=== PATIENT | female | born 1980 | race Caucasian/White ===

== ENCOUNTER 2024-01-19 17:16 | Inpatient (IN) ==
--- NOTE | 2024-01-19 18:25 | Emergency Department Note ---
Impression & Plan Panic attacks, Anxiety ED Provider Note NAME: YOJANA SELBY AGE: 43 SEX: F : 1980 ARRIVES VIA: Walk-In INFORMANT: Patient, ED PROVIDER(S): Miguel Angel Zepeda MD CHIEF COMPLAINT: Anxiety MEDICAL DECISION MAKING: Patient was seen due to concern for increasing anxiety. Blood work was obtained. Patient would like something for headache was ordered Tylenol. Patient was also given Vistaril as she had complained of anxiety. Blood work with a white count of 11 but denies infectious symptoms normal H&H and platelet count. Kidney function unremarkable mild hypokalemia 3.3. BSG at 142 but nonfasting not DKA. Urinalysis negative for blood or infection. Salicylate Tylenol alcohol negative and UDS negative. Patient was deemed medically cleared and seen and evaluated by psych medical case manager and referrals were made. The patient was accepted for inpatient treatment at [facility]. Discussion w/ other healthcare providers: ED case management Prior /Outside records reviewed: I reviewed a neurology visit from Dr. Ugarte from January 11, 2024. Known history of significant anxiety recently off Lexapro and lorazepam experiencing intermittent headaches with probable mixed type cervicogenic tension type headache as well as some migraine. Had complained of dizziness brain fog and intermittent diffuse paresthesias at that time. Do not think that EEG or EMG will be necessary at this time. Patient did have a brain MRI completed December 26, 2023 which showed no evidence of demyelinating disease hydrocephalus or Chiari malformation. Patient reportedly had a prior brain MRI completed December 22, 2023 as well. Differential diagnosis: Mood disorder, infection, hypoglycemia, electrolyte abnormalities, dehydration, medication side effect among others were considered. Diagnostics, as interpreted by me: ECG: None Medical decision rules: None Imaging studies: None HPI: Patient presents due to concern for worsening anxiety. The patient states that about 2 months ago the patient herself off Lexapro and Ativan still cannot focus. Patient reports not being able to sleep for about a month in duration. Recent in the last several days the patient has been able to sleep from about 12-5. Patient states that she wakes up and feels immediately anxious. Patient feels as though she is disassociated from her body. Patient has been seen by neurology and has had several MRIs. Patient reports that around the time that all this began her son graduated life with his sporting events and now that he no longer plays any sports there has been avoided there and that her daughter also moved out. She also states that her Pap . Patient is had decreased appetite. Patient's sleep is been poor. She smokes nicotine. The patient has tried hemp oil to help with sleep and appetite. Patient does use alcohol socially. Patient denies any SI HI or AVH. PAST MEDICAL HISTORY: See Below PAST SURGICAL HISTORY: See Below SOCIAL HISTORY: See Below HOME MEDICATIONS: See Below ALLERGIES: See Below VITALS: See Below PHYSICAL EXAMINATION: GENERAL: NAD, non-toxic. Anxious in appearance. Tearful. EYE EXAM: Normal conjunctiva. PERRL, no anisocoria and EOM's grossly intact w/o pain. OROPHARYNX: Moist mucus membranes, grossly normal dentition. NECK: Trachea midline, no stridor. Supple, no nuchal rigidity, no adenopathy, non-tender. No signs of meningismus. FROM of the neck with good chin to chest and neck extension. LUNGS: Clear to auscultation. Normal chest wall mechanics. HEART: NSR, no MRG. ABDOMEN: Abdomen soft, non-tender, no masses, no rebound or guarding. BACK: No CVA TTP. SKIN: No rashes and no bruising. UPPER EXTREMITIES: Upper extremities are grossly normal. LOWER EXTREMITIES: Grossly normal, no edema. NEURO EXAM: A&O x3, cranial nerves II-XII grossly intact, normal speech, moves all 4 extremities. Psych: Negative SI HI or AVH. Anxious and tearful. Past Med/Surg History Medical History Panic attacks Social History Smoking Status: Current every day smoker Preferred Language: Nepali Communication Ability: Effective Rolloff Truck Driver Required: No Beliefs That Will Affect Care: None Feels Safe at Home: Yes Gender Identity: Female Assistive Devices: None Allergies Allergies Allergy/AdvReac Type Severity Reaction Status Date / Time codeine AdvReac Intermediate HYPERACTIVE Verified 01/11/24 10:34 SURGICAL TAPES Allergy Intermediate RED RASH Uncoded 01/11/24 10:34 TO AREAS Home Meds Home Medications Medication Instructions Recorded Confirmed ibuprofen 200 mg tablet 800 mg PO DIRECTED PRN Pain 12/26/23 12/31/23 lorazepam 0.5 mg tablet 0.25 - 0.5 mg PO BID PRN Anxiety 12/26/23 12/31/23 methylphenidate HCl 27 mg 27 mg PO QAM 12/26/23 12/31/23 tablet,extended release 24 hr amoxicillin 875 mg-potassium 1 tab PO BID 12/31/23 12/31/23 clavulanate 125 mg tablet magnesium oxide 500 mg PO DAILY 12/31/23 12/31/23 multivit with minerals-folic acid tab PO 01/11/24 01/11/24 200 mcg-biotin 300 mcg chew tablet (Women's Multivitamin with Biotin) vit C 500 mg-rutin 10 mg-hesperidn tab PO 01/11/24 01/11/24 cmp 10 mg-bioflav,cit 200 mg tablet Previous Rx's Medication Instructions Recorded gabapentin 100 mg capsule 200 mg (2 x 100 mg) PO HS #60 caps 01/11/24 Results & Data (ED) Vital Signs Vital Signs - 24 hr 01/19/24 17:23 01/19/24 19:59 01/19/24 22:01 Temperature 36.8 C Temperature Source Temporal Artery Scan Pulse Rate 112 H Pulse Rate [Finger] 88 88 Pulse Rhythm Regular Pulse Strength Normal Pulse Strength [Finger] Normal Normal Respiratory Rate 20 20 96 H Respiratory Effort / Characteristics Non-Labored Spontaneous Non-Labored Spontaneous Non-Labored Spontaneous Respiratory Depth Normal Normal Normal Respiratory Pattern Regular Regular Blood Pressure 133/86 Blood Pressure [Left Arm] 125/82 116/76 Blood Pressure Mean 101 Blood Pressure Mean [Left Arm] 96 89 Pulse Oximetry 97 99 96 Oxygen Delivery Method Room Air Room Air Room Air Sepsis Recent Fever Within 48 Hours No Sepsis New/Unexplained Change in Mental Status No Sepsis Action Taken by Nursing No Action Required Home Medications Current Medication List: was personally reviewed by me Laboratory Data Attestation: I reviewed the patient's lab results. 01/19/24 18:30 01/19/24 18:30 Lab Results 01/19/24 01/19/24 Range/Units 18:30 19:55 WBC 11.14 H (4.8-10.8) K/ul RBC 4.63 (4.20-5.40) M/uL Hgb 15.0 (12.0-16.0) g/dl Hct 43.0 (37.0-47.0) % MCV 92.9 (80.0-100.0) fL MCH 32.4 (25.0-34.0) pg MCHC 34.9 (32.0-36.0) g/dL RDW Std Deviation 43.7 (36.4-46.3) fL RDW Coeff of Georgina 12.9 (11.5-14.5) % Plt Count 327 (130-400) K/uL MPV 10.0 (9.4-12.4) fL Immature Gran % (Auto) 0.3 % Neut % (Auto) 63.6 % Lymph % (Auto) 28.4 % [place] % (Auto) 6.2 % Eos % (Auto) 1.1 % Baso % (Auto) 0.4 % Neut # (Auto) 7.09 H (1.40-6.50) K/uL Lymph # (Auto) 3.16 (1.20-3.40) K/uL [place] # (Auto) 0.69 H (0.11-0.59) K/uL Eos # (Auto) 0.12 (0.00-0.50) K/uL Baso # (Auto) 0.05 (0.00-0.20) K/uL Immature Gran # (Auto) 0.03 (0.01-0.20) K/uL Sodium 138 (136-145) mmol/L Potassium 3.3 L (3.5-5.1) mmol/L Chloride 104 (98-107) mmol/L Carbon Dioxide 26 (21-32) mmol/L Anion Gap 8 (3-11) BUN 5 L (6-23) mg/dl Creatinine 0.67 (0.6-1.2) mg/dl Est Cr Clr Drug Dosing 107.0 ml/min Est GFR ( Amer) 123.9 ml/min Est GFR (Non-Af Amer) 106.9 ml/min BUN/Creatinine Ratio 7.5 L (10-20) Glucose 142 H (70-99(Fasting)) mg/dl Calcium 9.5 (8.6-10.3) mg/dl Total Bilirubin 0.3 (0.2-1.0) mg/dl AST 18 (13-39) U/L ALT 29 (7-52) U/L Alkaline Phosphatase 53 (34-104) U/L Total Protein 7.3 (6.0-8.3) gm/dl Albumin 4.6 (3.4-5.0) gm/dl Globulin 2.7 (2.5-4.0) gm/dl Albumin/Globulin Ratio 1.7 (0.9-2) TSH 0.816 (0.300-4.500) uIu/ml Urine Color Yellow Urine Appearance Clear (Clear) Urine pH 6.5 (4.5-7.5) Ur Specific [place] 1.002 (1.000-1.030) Urine Protein Negative (Negative) Urine Glucose (UA) Negative (Negative) Urine Ketones Negative (Negative) Urine Blood Negative (Negative) Urine Nitrite Negative (Negative) Urine Bilirubin Negative (Negative) Urine Urobilinogen Negative (Negative) Ur Leukocyte Esterase Negative (Negative) Salicylates < 3.0 L (3.0-30) mg/dl Urine Opiates Screen Neg (Neg) Ur Methadone, Qual Neg (Neg) Acetaminophen < 3 L (10-30) ug/ml Urine Barbiturates Neg (Neg) Ur Phencyclidine (PCP) Neg (Neg) U Amphetamin/Meth Scrn Neg (Neg) MDMA (Ecstasy) Screen Neg (Neg) U Benzodiazepines Scrn Neg (Neg) Ur Cocaine Metabolite Neg (Neg) U Marijuana (THC) Screen Neg (Neg) Ethyl Alcohol mg/dL < 10.0 (<10.0) mg/dl SARS-CoV-2, RNA, NAAT NEGATIVE (NEGATIVE) Administered Medications Discontinued Medications Acetaminophen (Acetaminophen 500 Mg Tab) 1,000 mg PO NOW STA Stop: 01/19/24 19:25 Last Admin: 01/19/24 19:47 Dose: 1,000 mg Documented By: ZACH Hydroxyzine HCl (Hydroxyzine Hcl 25 Mg Tab) 25 mg PO NOW STA Stop: 01/19/24 19:25 Last Admin: 01/19/24 19:49 Dose: 25 mg Documented By: ZACH Discharge Plan Visit Data Chief Complaint: Mental Health Evaluation Stated Complaint: MENTAL HEALTH EVAL, WENT OFF MEDS TOO FAST ED Provider: Miguel Angel Zepeda Discharge Problem: Panic attacks, Anxiety Patient Disposition: Admitted As Inpatient Discharge Instructions Interventions: ED Discharge Assessment Last Done: 01/19/24 22:29
[2024-01-19 18:57] LABS: Basophils # (auto) 0.05 K/uL (0.00-0.20); Basophils % (auto) 0.4 %; Eosinophils # (auto) 0.12 K/uL (0.00-0.50); Eosinophils % (auto) 1.1 %; Immature Granulocytes # (auto) 0.03 K/uL (0.01-0.20); Immature Granulocytes % (auto) 0.3 %; Lymphocytes # (auto) 3.16 K/uL (1.20-3.40); Lymphocytes % (auto) 28.4 %; Mean Corpuscular Hemoglobin 32.4 pg (25.0-34.0); Mean Corpuscular Hgb Conc 34.9 g/dL (32.0-36.0); Mean Corpuscular Volume 92.9 fL (80.0-100.0); Monocytes # (auto) 0.69 K/uL (0.11-0.59); Monocytes % (auto) 6.2 %; Neutrophils # (auto) 7.09 K/uL (1.40-6.50); Neutrophils % (auto) 63.6 %; Platelet Count 327 K/uL (130-400); RDW Coefficient of Variation 12.9 % (11.5-14.5); RDW Standard Deviation 43.7 fL (36.4-46.3); Red Blood Count 4.63 M/uL (4.20-5.40); White Blood Count 11.14 K/ul (4.8-10.8)
[2024-01-19 19:18] LABS: Albumin Globulin Ratio 1.7 (0.9-2); Albumin Level 4.6 gm/dl (3.4-5.0); BUN Creatinine Ratio 7.5 (10-20); Bilirubin,Total 0.3 mg/dl (0.2-1.0); Calcium 9.5 mg/dl (8.6-10.3); Est GFR (African American) 123.9 ml/min; Est GFR (Non-African American) 106.9 ml/min; Globulin 2.7 gm/dl (2.5-4.0); Potassium 3.3 mmol/L (3.5-5.1); Total Protein 7.3 gm/dl (6.0-8.3)
[2024-01-19 19:21] LABS: Acetaminophen < 3 ug/ml (10-30); Salicylate < 3.0 mg/dl (3.0-30)
[2024-01-19 19:31] LABS: Thyroid Stimulating Hormone 0.816 uIu/ml (0.300-4.500)
[2024-01-19] MEDS: ACETAMINOPHEN 500 MG TAB PO STA (19:47)
[2024-01-19] MEDS: hydrOXYzine HCl 25 MG TAB PO STA (19:49)
[2024-01-19 20:40] LABS: Amphetamines+Metham, Urine Neg (Neg); Barbiturates, Urine Neg (Neg); Benzodiazepine, Urine Neg (Neg); Cocaine, Urine Neg (Neg); MDMA (Ecstacy), Urine Neg (Neg); Marijuana, Urine Neg (Neg); Methadone, Urine Neg (Neg); Opiate, Urine Neg (Neg); Phencyclidine, Urine Neg (Neg)
[2024-01-19 20:47] LABS: Appearance Urine Clear (Clear); Bilirubin Urine Negative (Negative); Blood Urine Negative (Negative); Color Urine Yellow; Glucose Urine UA Negative (Negative); Ketones Urine Negative (Negative); Leukocyte Esterase Urine Negative (Negative); Nitrite Urine Negative (Negative); Protein Urine Negative (Negative); Specific Gravity Urine 1.002 (1.000-1.030); Urobilinogen Urine Negative (Negative); pH Urine 6.5 (4.5-7.5)
[2024-01-19] MEDS ORDERED: ACETAMINOPHEN 325 MG TAB PO PRN (22:45)
[2024-01-19] MEDS ORDERED: SODIUM CHLORIDE 0.65% NA SOLN 45 ML (OCEAN) PRN (22:45)
[2024-01-19] MEDS ORDERED: hydrOXYzine HCl 25 MG TAB PO PRN (22:45)
[2024-01-19] MEDS ORDERED: BISMUTH SUBSALICYLATE LIQD 236 ML PO PRN (22:45)
[2024-01-19] MEDS ORDERED: ALUMINUM/MAGNESIUM SUSP 30 ML UDC PO PRN (22:45)
[2024-01-19] MEDS ORDERED: MAGNESIUM HYDROXIDE SUSP 30 ML UDC PO PRN (22:45)
[2024-01-20] MEDS: hydrOXYzine HCl 25 MG TAB PO PRN (03:54)
[2024-01-20] MEDS: NICOTINE 21 MG/24 HR TDSY TD SCH (09:13)
[2024-01-20] MEDS: Nursing to Pharmacy Communication SCH (13:06)
[2024-01-20] MEDS: METHYLPHENIDATE HCL 10 MG TABLET PO SCH (13:06)
[2024-01-20] MEDS: METHYLPHENIDATE HCL 10 MG TABLET PO ONE (14:22)
--- NOTE | 2024-01-20 15:02 | History & Physical ---
Date of Service January 20, 2024 Impression / Recommendations Impression Yojana is a 43 yo woman with a history of ADHD, anxiety, depression, recent migraines and nicotine use who was admitted for severe anxiety and depression with hopelessness, poor sleep, significant concentration difficulties and multiple somatic symptoms with inability to feel safe or function at home. Diagnostically consistent with unspecified depression and anxiety with differential including MDD and BETHANY with panic attacks vs serotonin withdrawal syndrome in addition to likely contribution from sleep deprivation and possible migraines. Underlying medical condition possible but TSH normal, recent brain MRI normal per recent outpatient neurology visit and no evidence for any other acute medical condition. Blood sugar was elevated in ED but she recalls not fasting when this was drawn, no history of diabetes. She is deemed in need of psychiatric hospitalization for diagnostic clarification, safety and stabilization, medication management and development of further coping skills. Discussed medication treatment options in detail. Discussed risks, benefits and alternatives. Patient would like to start and consented to sertraline and mirtazapine for MDD and BETHANY and Ritalin for ADHD (since prior to admission Concerta is not available on formulary). Reviewed side effects including but not limited to: GI, COPE, sexual side effects with sertraline; sedation/increased appetite with mirtazapine; increased anxiety/HR/cardiac issues with Ritalin. She prefers to hold off on gabapentin at this time. MNPR due to severe anxiety and inability to tolerate a roommate and goal of focusing on limiting interruptions to allow for sleep promotion. Overall I spent a total of 80 minutes for this admission including review of chart records, review of labwork, direct evaluation of the patient, counseling the patient, ordering medication, risk assessment, discussion with the psychiatric liason RN and documentation in the electronic health record. (1) Major depressive disorder, recurrent episode, severe with anxious distress: (2) Generalized anxiety disorder with panic attacks: (3) Depersonalization: (4) ADHD: (5) Mixed migraine and muscle contraction headache: Plan 01/20/2024: The patient was admitted to the [facility] ([facility]) on q15 min checks (behavioral with suicide precautions) for safety. The patient will participate in group, recreational, and milieu therapies and will be offered additional individual and family sessions as clinically appropriate. -Start sertraline 25mg qd -Start mirtazapine 7.5mg HS with additional 7.5mg HS prn available for insomnia -Given Concerta is non-formulary will start Ritalin 10mg qAM until she can bring home supply to have pharmacy verify Inventory Assets Strengths: supportive relationships, willing to get treatment Needs: safety and stabilization, medication adjustment, additional coping skills, increased outpatient services Suicide Risk Level Suicide Risk Level: High-Moderate (q15 min suicide checks) (severe anxiety and felt unsafe alone due to feeling so overwhelmed prior to admission but feels safe in the hospital, able to safety contract and agrees to let nursing/staff know should they develop plan, intent or feel unable to remain safe.) Suicide Risk Level Comments: Risk Factors Assessment Male: No : Yes Do You Have Access To A Gun?: No (guns are secured in the home (locked, no access to keys)) Health Problems: Yes (headaches) Mental Health Diagnoses: Yes Substance Use Disorders: No Previous Attempt: No Family History of Suicide: No Previous Psychiatric Hospitalization: Yes Hopelessness: Yes Protective Factors Assessment Faith Beliefs: Yes : Yes Responsible for Young Children: Yes Employed: Yes (Self employed) Stable Relationships: Yes Supportive Family: Yes Psychiatric History Identifying Data YOJANA SELBY is a 43-year-old F who currently lives in [place] with her and her sons, has a history of anxiety, depression, ADHD and migraine, and was admitted on 01/19/24 22:40 on a 201 voluntary commitment for sever anxiety and SI with inability to function. Chief Complaint "I've been living in this brain fog for two months now". History of Present Illness She is tearful describing "so much" is going on including poor focus, feeling like "I'm walking on cotton" and like "I'm over here and my body is over here". She was very anxious and started a few different psychiatric medications (lexapro and then ativan) and feels like since then she cannot function. She tried a few days without Concerta but her symptoms were even worse. She noted she is "so scared" and "I just live in a panic attack all day". She is overwhelmed by trying to figure out what is medication related side effects versus physical symptoms versus underlying psychiatric symptoms. She notes significant hopelessness and panic noting "will I ever get my brain back". She notes this has been going on for 2 months and she can't function at all. Significant sleep difficulty, only sleeping a few hours per night. She notes a lot of "sensory stuff". Had MRI in outpatient setting but results have been normal. She feels like she is having constant panic, and notes "I just want my cognitive abilities" back. Additional recent history per ED CM note on 01/19/2024: "Pt reports that she has stopped and started numerous psychiatric medications since October. Her PCP Dr Lakhani at [facility] in [place] prescribes her meds. Pt weened herself off her Lexapro and Ativan in the past couple of months. She started Zofran at [facility] (inpatient on 12/30), stopped in and started it again since leaving that facility. It is difficult to understand exactly what meds she is now taking. 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 Either her mom or have been staying with her so she is not alone. Pt denies SI with a plan but states she cannot trust herself to not do something impulsively. Her has removed all firearms and sharps from the house. Pt was admitted to [facility] on 12/30 but signed out in 72 hours. She did not like that facility and did not feel safe. Pt is very anxious and tearful. She is requesting inpatient treatment. Patients is with her in the ER and he agrees that she needs inpatient treatment. " She is currently prescribed psychiatric medications of Concerta (tried going off it for a few days but made brain fog and anxiety much worse), gabapentin for migraine (only took for a few days, isn't sure she wants to take this as worries it could add to cognitive symptoms) and lorazepam prn (though has not used in recent months). She also tried lots of supplements from a atomic physics professor but nothing helped. She stopped the lexapro about one month ago, after tapering from 20mg over about a month. Psychiatric ROS notable for no current nor history of symptoms of isabel, psychosis, PTSD, nor OCD. Past Psychiatric History Current Psychiatric Diagnosis: anxiety, MDD, ADHD Outpatient Services: last week started therapy with Giulia through [facility]; recent intake at [facility] for psychiatry but won't have intake until March, [facility] said they may have an opening for psychiatry Previous Psych Admissions: [facility] December 2023, age 17 inpt for depression and eating disorder Do You Have Access To A Gun?: No (guns are secured in the home (locked, no access to keys)) History of Previous Suicide Attempt: No Past Medication Trials: sertraline (worked very well for years at 50mg, stopped due to feeling well), lexapro (~3 years), lorazepam Past Head Trauma/Neuro History History of Concussion/Seizure: No Allergies Allergy/AdvReac Type Severity Reaction Status Date / Time codeine AdvReac Intermediate HYPERACTIVE Verified 01/11/24 10:34 SURGICAL TAPES Allergy Intermediate RED RASH Uncoded 01/11/24 10:34 TO AREAS Home Medications Medication Instructions Recorded Confirmed Type ibuprofen 200 mg tablet 800 mg PO DIRECTED PRN Pain 12/26/23 12/31/23 History lorazepam 0.5 mg tablet 0.25 - 0.5 mg PO BID PRN Anxiety 12/26/23 12/31/23 History methylphenidate HCl 27 mg 27 mg PO QAM 12/26/23 12/31/23 History tablet,extended release 24 hr amoxicillin 875 mg-potassium 1 tab PO BID 12/31/23 12/31/23 History clavulanate 125 mg tablet magnesium oxide 500 mg PO DAILY 12/31/23 12/31/23 History gabapentin 100 mg capsule 200 mg (2 x 100 mg) PO HS #60 caps 01/11/24 01/11/24 Rx multivit with minerals-folic acid tab PO 01/11/24 01/11/24 History 200 mcg-biotin 300 mcg chew tablet (Women's Multivitamin with Biotin) vit C 500 mg-rutin 10 mg-hesperidn tab PO 01/11/24 01/11/24 History cmp 10 mg-bioflav,cit 200 mg tablet Family History Family History of: Doesn't Know Family Mental Health History Comment: mom has depression and anxiety Alcohol History Hx of Alcohol Use Over the Past 12 Months: No AUDIT Total Score: 1 Smoking Use Have You Smoked or Used Tobacco Products in the Last 30 Days: Yes tobacco type: cigarettes Smoking Status: Current every day smoker Smoking packs per day: 1 Substance History Hx of Prescription Med Misuse Over the Past 12 Months: No Hx of Over the Counter Med Misuse Over the Past 12 Months: No Hx of Inhalent Misuse Over the Past 12 Months: No Hx of Organic Substance Use Over the Past 12 Months: No Hx of Illegal Substances/Street Drug Use Over Past 12 Months: No Problems as a Result of Past Substance Use: None Identified Personal History Living Arrangements: Home Highest Grade Completed: College Highest Grade Completed Comment: two associate degrees Employment Status: Self-Employed Marital Status: Number Of Children: 3-22 daughter, 19 yo son, 8 yo son Beliefs That Will Affect Care: None Current Legal Problems: No Hx Legal Problems: No Patient History Medical History Panic attacks Social History Smoking Status: Current every day smoker Preferred Language: Divehi Communication Ability: Effective Food Operations Manager Required: No Beliefs That Will Affect Care: None Feels Safe at Home: Yes Gender Identity: Female Assistive Devices: None Review of Systems Review of Systems: All systems reviewed & are unremarkable except as noted in HPI & below (describes many physical symptoms including tingling, poor focus, "cognitively so slow") Physical Exam Psychiatric: Orientation: alert and oriented x 3 Apperance: appropriately dressed and appropriately groomed Eye Contact: good eye contact Motor Behavior: no abnormal motor movements Speech: normal rate/rhythm/volume of speech Affect: + depressed affect, + anxious affect and + tearful affect Mood: + depressed mood and + anxious mood Thought Process: + circumstantial thought process and + perseveration Thought Content: + preoccupation, reality based without delusions and + hopelessness Suicidal Thoughts: denies suicidal plan and denies suicidal intent; + reports suicidal thoughts (intermittent passive thoughts, but outside of hospital did not feel safe) Homicidal Thoughts: denies homicidal thoughts Hallucinations: no auditory hallucinations and no visual hallucinations Cognition: recent memory grossly intact, remote memory grossly intact, attention grossly intact and language grossly intact Estimated Intelligence: consistent with education level Insight: + limited insight Judgment: + limited judgement Vital Signs (Past 24 Hours): Last Vital Signs Temp 36.7 C 01/20/24 09:34 Pulse 110 H 01/20/24 09:34 Resp 18 01/19/24 23:37 BP 136/87 01/20/24 09:34 Pulse Ox 97 01/20/24 09:34 O2 Del Method Room Air 01/20/24 09:34 Exam Statement: A physical exam was performed in the ED by Dr. Zeepda for the purposes of medical clearance. I accept that physical as correct and adequate for the purposes of the inpatient physical exam. Results & Data ([facility]) Laboratory Results Laboratory Results - last 24 hr 01/19/24 01/19/24 18:30 19:55 WBC 11.14 H RBC 4.63 Hgb 15.0 Hct 43.0 MCV 92.9 MCH 32.4 MCHC 34.9 RDW Std Deviation 43.7 RDW Coeff of Georgina 12.9 Plt Count 327 MPV 10.0 Immature Gran % (Auto) 0.3 Neut % (Auto) 63.6 Lymph % (Auto) 28.4 [place] % (Auto) 6.2 Eos % (Auto) 1.1 Baso % (Auto) 0.4 Neut # (Auto) 7.09 H Lymph # (Auto) 3.16 [place] # (Auto) 0.69 H Eos # (Auto) 0.12 Baso # (Auto) 0.05 Immature Gran # (Auto) 0.03 Sodium 138 Potassium 3.3 L Chloride 104 Carbon Dioxide 26 Anion Gap 8 BUN 5 L Creatinine 0.67 Est Cr Clr Drug Dosing 107.0 Est GFR ( Amer) 123.9 Est GFR (Non-Af Amer) 106.9 BUN/Creatinine Ratio 7.5 L Glucose 142 H Calcium 9.5 Total Bilirubin 0.3 AST 18 ALT 29 Alkaline Phosphatase 53 Total Protein 7.3 Albumin 4.6 Globulin 2.7 Albumin/Globulin Ratio 1.7 TSH 0.816 Urine Color Yellow Urine Appearance Clear Urine pH 6.5 Ur Specific [place] 1.002 Urine Protein Negative Urine Glucose (UA) Negative Urine Ketones Negative Urine Blood Negative Urine Nitrite Negative Urine Bilirubin Negative Urine Urobilinogen Negative Ur Leukocyte Esterase Negative Salicylates < 3.0 L Urine Opiates Screen Neg Ur Methadone, Qual Neg Acetaminophen < 3 L Urine Barbiturates Neg Ur Phencyclidine (PCP) Neg U Amphetamin/Meth Scrn Neg MDMA (Ecstasy) Screen Neg U Benzodiazepines Scrn Neg Ur Cocaine Metabolite Neg U Marijuana (THC) Screen Neg Ethyl Alcohol mg/dL < 10.0 SARS-CoV-2, RNA, NAAT NEGATIVE Current Inpatient Medications Current Inpatient Medications: Current Inpatient Medications Acetaminophen (Acetaminophen 325 Mg Tab) 650 mg PO Q4H PRN PRN Reason: Headache or Minor Fever Stop: 02/18/24 22:44 Al Hydrox/Mg Hydrox/Simethicone (Aluminum/Magnesium Susp 30 Ml Udc) 30 ml PO Q4H PRN PRN Reason: GI Upset Stop: 02/18/24 22:44 Bismuth Subsalicylate (Bismuth Subsalicylate Liqd 236 Ml) 15 ml PO PRN PRN PRN Reason: Loose Stool Stop: 02/18/24 22:44 Hydroxyzine HCl (Hydroxyzine Hcl 25 Mg Tab) 50 mg PO HSZ PRN PRN Reason: Insomnia Stop: 02/18/24 22:44 Last Admin: 01/20/24 03:54 Dose: 50 mg Hydroxyzine HCl (Hydroxyzine Hcl 25 Mg Tab) 25 mg PO Q4H PRN PRN Reason: Anxiety Stop: 02/18/24 22:44 Magnesium Hydroxide (Magnesium Hydroxide Susp 30 Ml Udc) 30 ml PO DAILY PRN PRN Reason: Constipation Stop: 02/18/24 22:44 Miscellaneous (Remove Nicoderm Patch) 1 each N/A DAILY@0859 [facility] Stop: 02/19/24 08:58 Last Admin: 01/20/24 09:13 Dose: 1 each Nicotine (Nicotine 21 Mg/24 Hr Tdsy) 21 mg TD QAM [facility] Stop: 02/19/24 08:59 Last Admin: 01/20/24 09:13 Dose: 21 mg Sodium Chloride (Sodium Chloride 0.65% Na Soln 45 Ml ([place])) 1 - 2 sprays NA PRN PRN PRN Reason: Nasal Dryness/Congestion Stop: 02/18/24 22:44
[2024-01-20] MEDS: MIRTAZAPINE TAB 15 MG TAB PO SCH (20:51)
[2024-01-20] MEDS: SERTRALINE HCL 50 MG TABLET PO SCH (20:51)
[2024-01-21] MEDS ORDERED: METHYLPHENIDATE HCL 10 MG TABLET PO SCH (09:00)
[2024-01-21] MEDS: METHYLPHENIDATE HCL 10 MG TABLET PO SCH (09:00)
--- NOTE | 2024-01-21 14:29 | Psychiatric Progress Note ---
Date of Service January 21, 2024 Impression / Recommendations Impression Yojana is a 43 yo woman with a history of ADHD, anxiety, depression, recent migraines and nicotine use who was admitted for severe anxiety and depression with hopelessness, poor sleep, significant concentration difficulties and multiple somatic symptoms with inability to feel safe or function at home. Diagnostically consistent with unspecified depression and anxiety with differential including MDD and BETHANY with panic attacks vs serotonin withdrawal syndrome in addition to likely contribution from sleep deprivation and possible migraines. Underlying medical condition possible but TSH normal, recent brain MRI normal per recent outpatient neurology visit and no evidence for any other acute medical condition. Blood sugar was elevated in ED but she recalls not fasting when this was drawn, no history of diabetes. She is deemed in need of psychiatric hospitalization for diagnostic clarification, safety and stabilization, medication management and development of further coping skills. MNPR due to severe anxiety and inability to tolerate a roommate and goal of focusing on limiting interruptions to allow for sleep promotion. 01/21/2024: Slightly less anxious and mood slightly improved today, remains tearf ul about being away from her young son and family, tolerating medication initiations, slept better with mirtazapine, will titrate sertraline to effective dose tonight. Overall, I spent a total of 40 minutes on this case including meeting with the patient, reviewing the chart, nursing report, multidisciplinary team meeting, orders, and documentation. (1) Major depressive disorder, recurrent episode, severe with anxious distress: (2) Generalized anxiety disorder with panic attacks: (3) Depersonalization: (4) ADHD: (5) Mixed migraine and muscle contraction headache: Plan 01/21/2024: -Increase sertraline to 50mg HS -Continue with mirtazapine scheduled and prn dose -Concerta 27mg qAM tomorrow once home supply is brought 01/20/2024: The patient was admitted to the [facility] ([facility] mental health unit) on q15 min checks (behavioral with suicide precautions) for safety. The patient will participate in group, recreational, and milieu therapies and will be offered additional individual and family sessions as clinically appropriate. -Start sertraline 25mg HS -Start mirtazapine 7.5mg HS with additional 7.5mg HS prn available for insomnia -Given Concerta is non-formulary will start Ritalin 10mg qAM until she can bring home supply to have pharmacy verify Inventory Assets Strengths: supportive relationships, willing to get treatment Needs: safety and stabilization, medication adjustment, additional coping skills, increased outpatient services Suicide Risk Level Suicide Risk Level: Moderate (q15 min suicide checks) (severe anxiety and felt unsafe alone due to feeling so overwhelmed prior to admission but slightly less anxious today, feels safe in the hospital, able to safety contract and agrees to let nursing/staff know should they develop plan, intent or feel unable to remain safe.) Suicide Risk Level Comments: Risk Factors Assessment Male: No : Yes Do You Have Access To A Gun?: No (guns are secured in the home (locked, no access to keys)) Health Problems: Yes (headaches) Mental Health Diagnoses: Yes Substance Use Disorders: No Previous Attempt: No Family History of Suicide: No Previous Psychiatric Hospitalization: Yes Hopelessness: Yes Protective Factors Assessment Spiritism Beliefs: Yes : Yes Responsible for Young Children: Yes Employed: Yes (Self employed) Stable Relationships: Yes Supportive Family: Yes Interval History Identifying Information YOJANA SELBY is a 43-year-old F who currently lives in [place] with her and her sons, has a history of anxiety, depression, ADHD and migraine, and was admitted on 01/19/24 22:40 on a 201 voluntary commitment for sever anxiety and SI with inability to function. Chief Complaint "I'm a little better today". Review of Systems Sleep Information Total Hours of Sleep: 6.30 Sleep Comments: Pt started Remeron 7.5mg at HS. Meal Information Percent Meal Consumed - Breakfast: 50 Percent Meal Consumed - Lunch: 80 Percent Meal Consumed - Dinner: 50 Subjective Subjective Patient was seen & assessed and interval progress reviewed with treatment team nursing and social work. Reports feeling a bit better today and is pleased she slept better with mirtazapine and has been able to focus on a puzzle today. Thinks many of her symptoms may be due to anxiety but still unsure about contribution from lack of sleep and possible serotonin withdrawal. Reviewed she had flu-like illness prior to onset of severe anxiety but also other personal stressors preceding symptom onset. No side effects except ongoing recently chronic COPE from starting sertraline and mirtazapine. Tearful in speaking about missing her son and family. Physical Exam Psychiatric Orientation: alert and oriented x 3 Apperance: appropriately dressed and appropriately groomed Eye Contact: good eye contact Motor Behavior: no abnormal motor movements Speech: normal rate/rhythm/volume of speech Affect: + anxious affect and + tearful affect (briefly) Mood: + depressed mood and + anxious mood Thought Process: goal directed thought process and + perseveration Thought Content: + preoccupation and reality based without delusions Suicidal Thoughts: denies suicidal plan and denies suicidal intent; + reports suicidal thoughts (intermittent passive thoughts) Homicidal Thoughts: denies homicidal thoughts Hallucinations: no auditory hallucinations and no visual hallucinations Cognition: recent memory grossly intact, remote memory grossly intact, attention grossly intact and language grossly intact Estimated Intelligence: consistent with education level Insight: + fair insight Judgment: + fair judgement Vital Signs (Past 24 Hours) Last Vital Signs Temp 36.7 C 01/21/24 06:38 Pulse 101 H 01/21/24 06:38 Resp 16 01/21/24 06:38 BP 123/83 01/21/24 06:38 Pulse Ox 97 01/20/24 09:34 O2 Del Method Room Air 01/20/24 09:34 Results & Data ([facility]) Current Inpatient Medications Current Inpatient Medications: Current Inpatient Medications Acetaminophen (Acetaminophen 325 Mg Tab) 650 mg PO Q4H PRN PRN Reason: Headache or Minor Fever Stop: 02/18/24 22:44 Al Hydrox/Mg Hydrox/Simethicone (Aluminum/Magnesium Susp 30 Ml Udc) 30 ml PO Q4H PRN PRN Reason: GI Upset Stop: 02/18/24 22:44 Bismuth Subsalicylate (Bismuth Subsalicylate Liqd 236 Ml) 15 ml PO PRN PRN PRN Reason: Loose Stool Stop: 02/18/24 22:44 Hydroxyzine HCl (Hydroxyzine Hcl 25 Mg Tab) 50 mg PO HSZ PRN PRN Reason: Insomnia Stop: 02/18/24 22:44 Last Admin: 01/20/24 03:54 Dose: 50 mg Hydroxyzine HCl (Hydroxyzine Hcl 25 Mg Tab) 25 mg PO Q4H PRN PRN Reason: Anxiety Stop: 02/18/24 22:44 Magnesium Hydroxide (Magnesium Hydroxide Susp 30 Ml Udc) 30 ml PO DAILY PRN PRN Reason: Constipation Stop: 02/18/24 22:44 Methylphenidate HCl (Methylphenidate Hcl 10 Mg Tablet) 10 mg PO QAM ALEN Stop: 02/04/24 08:59 Last Admin: 01/21/24 09:00 Dose: 10 mg Mirtazapine (Mirtazapine Tab 15 Mg Tab) 7.5 mg PO HS ALEN Stop: 02/19/24 21:59 Last Admin: 01/20/24 20:51 Dose: 7.5 mg Mirtazapine (Mirtazapine Tab 15 Mg Tab) 7.5 mg PO HS PRN PRN Reason: Insomnia Stop: 02/19/24 21:59 Miscellaneous (Remove Nicoderm Patch) 1 each N/A DAILY@0859 ALEN Stop: 02/19/24 08:58 Last Admin: 01/21/24 08:41 Dose: 1 each Nicotine (Nicotine 21 Mg/24 Hr Tdsy) 21 mg TD QAM ALEN Stop: 02/19/24 08:59 Last Admin: 01/21/24 08:42 Dose: 21 mg Sertraline HCl (Sertraline Hcl 50 Mg Tablet) 25 mg PO HS ALEN Stop: 02/19/24 21:59 Last Admin: 01/20/24 20:51 Dose: 25 mg Sodium Chloride (Sodium Chloride 0.65% Na Soln 45 Ml ([place])) 1 - 2 sprays NA PRN PRN PRN Reason: Nasal Dryness/Congestion Stop: 02/18/24 22:44 Mental Health & Subst Abuse Tx Therapist Name of Therapist: None Machine Cloth Measurer Name of Machine Cloth Measurer: None Post Discharge Appointments Primary Care Physician Name Of Family Doctor/PCP: Dr. Lesvia English
[2024-01-21] MEDS: SERTRALINE HCL 50 MG TABLET PO SCH (21:05)
[2024-01-22] MEDS: MIRTAZAPINE TAB 15 MG TAB PO PRN (02:41)
[2024-01-22] MEDS: METHYLPHENIDATE ER 27 MG PO SCH (08:49)
[2024-01-22] MEDS: METHYLPHENIDATE 27 MG PO SCH (08:49)
--- NOTE | 2024-01-22 09:18 | Psychiatric Progress Note ---
Date of Service January 22, 2024 Impression / Recommendations Impression Yojana is a 43 yo woman with a history of ADHD, anxiety, depression, recent migraines and nicotine use who was admitted for severe anxiety and depression with hopelessness, poor sleep, significant concentration difficulties and multiple somatic symptoms with inability to feel safe or function at home. Diagnostically consistent with unspecified depression and anxiety with differential including MDD and BETHANY with panic attacks vs serotonin withdrawal syndrome in addition to likely contribution from sleep deprivation and possible migraines. Underlying medical condition possible but TSH normal, recent brain MRI normal per recent outpatient neurology visit and no evidence for any other acute medical condition. Blood sugar was elevated in ED but she recalls not fasting when this was drawn, no history of diabetes. She is deemed in need of psychiatric hospitalization for diagnostic clarification, safety and stabilization, medication management and development of further coping skills. MNPR due to severe anxiety and inability to tolerate a roommate and goal of focusing on limiting interruptions to allow for sleep promotion. 01/22/2024: Increased anxiety today, unclear if due to not as good quality sleep vs concern about eye blurriness side effect from mirtazapine vs from Concerta. She would like to try Ritalin again in lieu of Concerta and wants to remain at low dose of mirtazapine while giving sertraline time to work. Very focused on discharge but still with significant anxiety except for slight improvement in concentration. Overall, I spent a total of 38 minutes on this case including meeting with the patient, reviewing the chart, nursing report, multidisciplinary team meeting, orders, and documentation. (1) Major depressive disorder, recurrent episode, severe with anxious distress: (2) Generalized anxiety disorder with panic attacks: (3) Depersonalization: (4) ADHD: (5) Mixed migraine and muscle contraction headache: Plan 01/22/2024: -Continue sertraline and mirtazapine (she will attempt to avoid use of additional prn dose as may have contributed to blurry vision) -Will discontinue Concerta and go back to Ritalin 10mg qd 01/21/2024: -Increase sertraline to 50mg HS -Continue with mirtazapine scheduled and prn dose -Concerta 27mg qAM tomorrow once home supply is brought 01/20/2024: The patient was [facility] to the [facility] on q15 min checks (behavioral with suicide precautions) for safety. The patient will participate in group, recreational, and milieu therapies and will be offered additional individual and family sessions as clinically appropriate. -Start sertraline 25mg HS -Start mirtazapine 7.5mg HS with additional 7.5mg HS prn available for insomnia -Given Concerta is non-formulary will start Ritalin 10mg qAM until she can bring home supply to have pharmacy verify Inventory Assets Strengths: supportive relationships, willing to get treatment Needs: safety and stabilization, medication adjustment, additional coping skills, increased outpatient services Suicide Risk Level Suicide Risk Level: Moderate (q15 min suicide checks) (severe anxiety and felt unsafe alone due to feeling so overwhelmed prior to admission but slightly less anxious, less tearful, denies SI and feels safe in the hospital, able to safety contract and agrees to let nursing/staff know should they develop plan, intent or feel unable to remain safe.) Suicide Risk Level Comments: Risk Factors Assessment Male: No : Yes Do You Have Access To A Gun?: No (guns are secured in the home (locked, no access to keys)) Health Problems: Yes (headaches) Mental Health Diagnoses: Yes Substance Use Disorders: No Previous Attempt: No Family History of Suicide: No Previous Psychiatric Hospitalization: Yes Hopelessness: Yes Protective Factors Assessment Mormonism Beliefs: Yes : Yes Responsible for Young Children: Yes Employed: Yes (Self employed) Stable Relationships: Yes Supportive Family: Yes Interval History Identifying Information YOJANA SELBY is a 43-year-old F who currently lives in [place] with her and her sons, has a history of anxiety, depression, ADHD and migraine, and was admitted on 01/19/24 22:40 on a 201 voluntary commitment for sever anxiety and SI with inability to function. Chief Complaint "I'm very very anxious today". Review of Systems Sleep Information Total Hours of Sleep: 6.5 Sleep Comments: Meal Information Percent Meal Consumed - Breakfast: 100 Percent Meal Consumed - Lunch: 80 Percent Meal Consumed - Dinner: 70 Subjective Subjective Patient was seen & assessed and interval progress reviewed with treatment team nursing and social work. Had visitors last evening. Attending groups and socializing with a peer. Showered last evening. Took a dose of prn mirtazapine last night at about 2am after waking up. Today reports increased anxiety but feels this is due to not being at home. Has some eye blurriness this morning but it resolved by mid-day. She states "if I was out of here I would feel much better". She is pleased to be back on the sertraline, wonders if Concerta today made her more anxious. Wonders about stopping mirtazapine as she worries about possibility of it being hard to stop in the future if it causes withdrawal side effects like she feels occurred with stopping escitalopram. Discussed her wish to feel better by March when her first grandchild, a boy, will be born. Physical Exam Psychiatric Orientation: alert and oriented x 3 Apperance: appropriately dressed and appropriately groomed Eye Contact: good eye contact Motor Behavior: no abnormal motor movements Speech: normal rate/rhythm/volume of speech Affect: + anxious affect and + tearful affect (briefly) Mood: + depressed mood and + anxious mood Thought Process: goal directed thought process and + perseveration Thought Content: + preoccupation and reality based without delusions Suicidal Thoughts: denies suicidal thoughts, denies suicidal plan and denies suicidal intent Homicidal Thoughts: denies homicidal thoughts Hallucinations: no auditory hallucinations and no visual hallucinations Cognition: recent memory grossly intact, remote memory grossly intact, attention grossly intact and language grossly intact Estimated Intelligence: consistent with education level Insight: + fair insight Judgment: + limited judgement Vital Signs (Past 24 Hours) Last Vital Signs Temp 37 C 01/22/24 06:38 Pulse 94 H 01/22/24 06:39 Resp 16 01/22/24 06:38 BP 123/85 01/22/24 06:39 Pulse Ox 97 01/20/24 09:34 O2 Del Method Room Air 01/20/24 09:34 Results & Data ([facility]) Current Inpatient Medications Current Inpatient Medications: Current Inpatient Medications Acetaminophen (Acetaminophen 325 Mg Tab) 650 mg PO Q4H PRN PRN Reason: Headache or Minor Fever Stop: 02/18/24 22:44 Al Hydrox/Mg Hydrox/Simethicone (Aluminum/Magnesium Susp 30 Ml Udc) 30 ml PO Q4H PRN PRN Reason: GI Upset Stop: 02/18/24 22:44 Bismuth Subsalicylate (Bismuth Subsalicylate Liqd 236 Ml) 15 ml PO PRN PRN PRN Reason: Loose Stool Stop: 02/18/24 22:44 Hydroxyzine HCl (Hydroxyzine Hcl 25 Mg Tab) 50 mg PO HSZ PRN PRN Reason: Insomnia Stop: 02/18/24 22:44 Last Admin: 01/20/24 03:54 Dose: 50 mg Hydroxyzine HCl (Hydroxyzine Hcl 25 Mg Tab) 25 mg PO Q4H PRN PRN Reason: Anxiety Stop: 02/18/24 22:44 Magnesium Hydroxide (Magnesium Hydroxide Susp 30 Ml Udc) 30 ml PO DAILY PRN PRN Reason: Constipation Stop: 02/18/24 22:44 Methylphenidate HCl (Methylphenidate Er 27 Mg) 1 each PO QAM ALEN Stop: 02/05/24 08:59 Last Admin: 01/22/24 08:49 Dose: 1 each Mirtazapine (Mirtazapine Tab 15 Mg Tab) 7.5 mg PO HS ALEN Stop: 02/19/24 21:59 Last Admin: 01/21/24 21:04 Dose: 7.5 mg Mirtazapine (Mirtazapine Tab 15 Mg Tab) 7.5 mg PO HS PRN PRN Reason: Insomnia Stop: 02/19/24 21:59 Last Admin: 01/22/24 02:41 Dose: 7.5 mg Miscellaneous (Remove Nicoderm Patch) 1 each N/A DAILY@0859 ALEN Stop: 02/19/24 08:58 Last Admin: 01/22/24 08:49 Dose: 1 each Nicotine (Nicotine 21 Mg/24 Hr Tdsy) 21 mg TD QAM ALEN Stop: 02/19/24 08:59 Last Admin: 01/22/24 08:49 Dose: 21 mg Methylphenidate Er 27 Mg~Patient's Own Controlled Med 1 1 each PO QAM ALEN Stop: 02/05/24 08:59 Last Admin: 01/22/24 08:49 Dose: Not Given Sertraline HCl (Sertraline Hcl 50 Mg Tablet) 50 mg PO HS ALEN Stop: 02/20/24 21:59 Last Admin: 01/21/24 21:05 Dose: 50 mg Sodium Chloride (Sodium Chloride 0.65% Na Soln 45 Ml ([place])) 1 - 2 sprays NA PRN PRN PRN Reason: Nasal Dryness/Congestion Stop: 02/18/24 22:44 Mental Health & Subst Abuse Tx Therapist Name of Therapist: None Glass Calibrator Name of Glass Calibrator: None Post Discharge Appointments Primary Care Physician Name Of Family Doctor/PCP: Dr. Lesvia English
[2024-01-23] MEDS: METHYLPHENIDATE HCL 10 MG TABLET PO SCH ×2 (09:01→14:01)
--- NOTE | 2024-01-23 11:14 | Psychiatric Progress Note ---
Date of Service January 23, 2024 Impression / Recommendations Impression Yojana is a 43 yo woman with a history of ADHD, anxiety, depression, recent migraines and nicotine use who was admitted for severe anxiety and depression with hopelessness, poor sleep, significant concentration difficulties and multiple somatic symptoms with inability to feel safe or function at home. Diagnostically consistent with unspecified depression and anxiety with differential including MDD and BETHANY with panic attacks vs serotonin withdrawal syndrome in addition to likely contribution from sleep deprivation and possible migraines. Underlying medical condition possible but TSH normal, recent brain MRI normal per recent outpatient neurology visit and no evidence for any other acute medical condition. Blood sugar was elevated in ED but she recalls not fasting when this was drawn, no history of diabetes. She is deemed in need of psychiatric hospitalization for diagnostic clarification, safety and stabilization, medication management and development of further coping skills. MNPR due to severe anxiety and inability to tolerate a roommate and goal of focusing on limiting interruptions to allow for sleep promotion. 01/23/2024: Ongoing severe anxiety but challenged by trying to find options that don't cause sedation or impact her concentration as these seem to further heighten her anxiety. Unclear if Ritalin better tolerated over Concerta. She consents to gabapentin trial for off-label use for anxiety while waiting for effects of sertraline and mirtazapine. Reviewed side effects including but not limited to: sedation, dizziness, seizure if stopped abruptly from high dose. Family meeting notable for how difficult it has been for her to function at home. Overall, I spent a total of 40 minutes on this case including meeting with the patient, reviewing the chart, nursing report, multidisciplinary team meeting, orders, and documentation. (1) Major depressive disorder, recurrent episode, severe with anxious distress: (2) Generalized anxiety disorder with panic attacks: (3) Depersonalization: (4) ADHD: (5) Mixed migraine and muscle contraction headache: Plan 01/23/2024: -Start gabapentin 100mg TID -Increase Ritalin 10mg @ 0700 and 1400 -Continue sertraline and mirtazapine 01/22/2024: -Continue sertraline and mirtazapine (she will attempt to avoid use of additional prn dose as may have contributed to blurry vision) -Will discontinue Concerta and go back to Ritalin 10mg qd 01/21/2024: -Increase sertraline to 50mg HS -Continue with mirtazapine scheduled and prn dose -Concerta 27mg qAM tomorrow once home supply is brought 01/20/2024: The patient was admitted to the [facility] ([facility]) on q15 min checks (behavioral with suicide precautions) for safety. The patient will participate in group, recreational, and milieu therapies and will be offered additional individual and family sessions as clinically appropriate. -Start sertraline 25mg HS -Start mirtazapine 7.5mg HS with additional 7.5mg HS prn available for insomnia -Given Concerta is non-formulary will start Ritalin 10mg qAM until she can bring home supply to have pharmacy verify Inventory Assets Strengths: supportive relationships, willing to get treatment Needs: safety and stabilization, medication adjustment, additional coping skills, increased outpatient services Suicide Risk Level Suicide Risk Level: Moderate (q15 min suicide checks) (severe anxiety and felt unsafe alone due to feeling so overwhelmed prior to admission but slightly less anxious, less tearful, denies SI and feels safe in the hospital, able to safety contract and agrees to let nursing/staff know should they develop plan, intent or feel unable to remain safe.) Suicide Risk Level Comments: Risk Factors Assessment Male: No : Yes Do You Have Access To A Gun?: No (guns are secured in the home (locked, no access to keys)) Health Problems: Yes (headaches) Mental Health Diagnoses: Yes Substance Use Disorders: No Previous Attempt: No Family History of Suicide: No Previous Psychiatric Hospitalization: Yes Hopelessness: Yes Protective Factors Assessment Jain Beliefs: Yes : Yes Responsible for Young Children: Yes Employed: Yes (Self employed) Stable Relationships: Yes Supportive Family: Yes Interval History Identifying Information YOJANA SELBY is a 43-year-old F who currently lives in [place] with her and her sons, has a history of anxiety, depression, ADHD and migraine, and was admitted on 01/19/24 22:40 on a 201 voluntary commitment for sever anxiety and SI with inability to function. Chief Complaint "I just feel like I'm going to crawl out of my skin". Review of Systems Sleep Information Total Hours of Sleep: 7.30 Sleep Comments: Scheduled HS Remeron and Pt didn't required another PRN dose. Meal Information Percent Meal Consumed - Breakfast: 25 Percent Meal Consumed - Lunch: 80 Percent Meal Consumed - Dinner: 60 Subjective Subjective Patient was seen & assessed and interval progress reviewed with treatment team nursing and social work. Remains very anxious and concerned about possible medication side effects given that she feels coming off of lexapro a few months ago may have lead to all of this through SSRI withdrawal. She is glad that some of the brain fog has improved but still with significant concentration difficulty. Slept better last night and no nightmares or dreams as she removed her nicotine patch before bed. Physical Exam Psychiatric Orientation: alert and oriented x 3 Apperance: appropriately dressed and appropriately groomed Eye Contact: good eye contact Motor Behavior: no abnormal motor movements Speech: normal rate/rhythm/volume of speech Affect: + anxious affect Mood: + depressed mood and + anxious mood Thought Process: + perseveration Thought Content: + preoccupation and reality based without delusions Suicidal Thoughts: denies suicidal thoughts, denies suicidal plan and denies suicidal intent Homicidal Thoughts: denies homicidal thoughts Hallucinations: no auditory hallucinations and no visual hallucinations Cognition: recent memory grossly intact, remote memory grossly intact, attention grossly intact and language grossly intact Estimated Intelligence: consistent with education level Insight: + fair insight Judgment: + limited judgement Vital Signs (Past 24 Hours) Last Vital Signs Temp 37.1 C 01/23/24 06:37 Pulse 84 01/23/24 06:37 Resp 16 01/23/24 06:37 BP 126/77 01/23/24 06:40 Pulse Ox 97 01/23/24 06:37 O2 Del Method Room Air 01/23/24 06:37 Results & Data ([facility]) Current Inpatient Medications Current Inpatient Medications: Current Inpatient Medications Acetaminophen (Acetaminophen 325 Mg Tab) 650 mg PO Q4H PRN PRN Reason: Headache or Minor Fever Stop: 02/18/24 22:44 Al Hydrox/Mg Hydrox/Simethicone (Aluminum/Magnesium Susp 30 Ml Udc) 30 ml PO Q4H PRN PRN Reason: GI Upset Stop: 02/18/24 22:44 Bismuth Subsalicylate (Bismuth Subsalicylate Liqd 236 Ml) 15 ml PO PRN PRN PRN Reason: Loose Stool Stop: 02/18/24 22:44 Hydroxyzine HCl (Hydroxyzine Hcl 25 Mg Tab) 50 mg PO HSZ PRN PRN Reason: Insomnia Stop: 02/18/24 22:44 Last Admin: 01/20/24 03:54 Dose: 50 mg Hydroxyzine HCl (Hydroxyzine Hcl 25 Mg Tab) 25 mg PO Q4H PRN PRN Reason: Anxiety Stop: 02/18/24 22:44 Magnesium Hydroxide (Magnesium Hydroxide Susp 30 Ml Udc) 30 ml PO DAILY PRN PRN Reason: Constipation Stop: 02/18/24 22:44 Methylphenidate HCl (Methylphenidate Hcl 10 Mg Tablet) 10 mg PO QAM ALEN Stop: 02/06/24 08:59 Last Admin: 01/23/24 09:01 Dose: 10 mg Mirtazapine (Mirtazapine Tab 15 Mg Tab) 7.5 mg PO HS ALEN Stop: 02/19/24 21:59 Last Admin: 01/22/24 21:03 Dose: 7.5 mg Mirtazapine (Mirtazapine Tab 15 Mg Tab) 7.5 mg PO HS PRN PRN Reason: Insomnia Stop: 02/19/24 21:59 Last Admin: 01/22/24 02:41 Dose: 7.5 mg Miscellaneous (Remove Nicoderm Patch) 1 each N/A DAILY@0859 [facility] Stop: 02/19/24 08:58 Last Admin: 01/23/24 09:01 Dose: 1 each Nicotine (Nicotine 21 Mg/24 Hr Tdsy) 21 mg TD QAM ALEN Stop: 02/19/24 08:59 Last Admin: 01/23/24 09:00 Dose: 21 mg Sertraline HCl (Sertraline Hcl 50 Mg Tablet) 50 mg PO HS ALEN Stop: 02/20/24 21:59 Last Admin: 01/22/24 21:05 Dose: 50 mg Sodium Chloride (Sodium Chloride 0.65% Na Soln 45 Ml ([place])) 1 - 2 sprays NA PRN PRN PRN Reason: Nasal Dryness/Congestion Stop: 02/18/24 22:44 Mental Health & Subst Abuse Tx Psychiatrist Name of Psychiatrist: [facility]- Dr. Davila Psychiatrist's Date Of Appointment With Psychiatric Provider: 03/23/2024 Time of Appointment with Psychiatrist: 2:10pm Psychiatric Appointment Comment: [address], [place] [address] Therapist Name of Therapist: [facility]- Roseann Montoya LCSW Therapist's Date of Therapist Appointment: 01/26/2024 Time of Therapist Appointment: 1pm Therapy Appointment Comment: [facility] [place] [address] Roofer Gypsum Name of Roofer Gypsum: None Post Discharge Appointments Primary Care Physician Name Of Family Doctor/PCP: Dr. [facility] Date of Future Appointment with PCP: 02/05/2024 Time of Appointment with PCP: 11AM Provider Appointment Comment: [id number], [place] [id number] Contact Information Discharge Discharge Address: [facility] [address], [place] [address]
[2024-01-23] MEDS: GABAPENTIN 100 MG CAP PO STA (11:41)
[2024-01-23] MEDS: GABAPENTIN 100 MG CAP PO SCH (14:05)
--- NOTE | 2024-01-24 09:36 | Discharge Summary ---
Date of Service January 24, 2024 History of Present Illness She is tearful describing "so much" is going on including poor focus, feeling like "I'm walking on cotton" and like "I'm over here and my body is over here". She was very anxious and started a few different psychiatric medications (lexapro and then ativan) and feels like since then she cannot function. She tried a few days without Concerta but her symptoms were even worse. She noted she is "so scared" and "I just live in a panic attack all day". She is overwhelmed by trying to figure out what is medication related side effects versus physical symptoms versus underlying psychiatric symptoms. She notes significant hopelessness and panic noting "will I ever get my brain back". She notes this has been going on for 2 months and she can't function at all. Significant sleep difficulty, only sleeping a few hours per night. She notes a lot of "sensory stuff". Had MRI in outpatient setting but results have been normal. She feels like she is having constant panic, and notes "I just want my cognitive abilities" back. Additional recent history per ED CM note on 01/19/2024: "Pt reports that she has stopped and started numerous psychiatric medications since October. Her PCP Dr Lakhani at [facility] in [place] prescribes her meds. Pt weened herself off her Lexapro and Ativan in the past couple of months. She started Zofran at [facility] (inpatient on 12/30), stopped in and started it again since leaving that facility. It is difficult to understand exactly what meds she is now taking. 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 Either her mom or have been staying with her so she is not alone. Pt denies SI with a plan but states she cannot trust herself to not do something impulsively. Her has removed all firearms and sharps from the house. Pt was admitted to [facility] on 12/30 but signed out in 72 hours. She did not like that facility and did not feel safe. Pt is very anxious and tearful. She is requesting inpatient treatment. Patients is with her in the ER and he agrees that she needs inpatient treatment. " She is currently prescribed psychiatric medications of Concerta (tried going off it for a few days but made brain fog and anxiety much worse), gabapentin for migraine (only took for a few days, isn't sure she wants to take this as worries it could add to cognitive symptoms) and lorazepam prn (though has not used in recent months). She also tried lots of supplements from a work station support specialist but nothing helped. She stopped the lexapro about one month ago, after tapering from 20mg over about a month. Psychiatric ROS notable for no current nor history of symptoms of isabel, psychosis, PTSD, nor OCD. Physical Exam Vital Signs (Past 24 Hours) Last Vital Signs Temp 36.8 C 01/24/24 06:42 Pulse 97 H 01/24/24 06:43 Resp 16 01/24/24 06:42 BP 132/85 01/24/24 06:43 Pulse Ox 96 01/24/24 06:42 O2 Del Method Room Air 01/24/24 06:42 See admission H&P and DOD summary. Principal Diagnosis Major Depressive Disorder with anxious distress Psychiatric Data See daily stay summary. In short, patient was engaged with the social/therapeutic milieu of the unit, safety was maintained and the patient was cooperative with care. Medication changes included initiation and titration of sertraline 50mg HS and mirtazapine 7.5mg HS for MDD and BETHANY as well as gabapentin 100mg TID prn for off-label use for anxiety and Ritalin 10mg qAM and qafternoon for ADHD and they tolerated this well. If anxiety persists despite these medication adjustments then could consider a trial of propranolol IR 10mg BID prn for off-label anxiety in lieu of gabapentin or initiation of buspirone. A family session was held and safety plan was completed prior to discharge. Reviewed mobile apps that could be used for additional ways to have their safety plan and contacts easily available should thoughts of SI re-emerge in the future and to help cope with anxiety. Reviewed importance of seeking emergency care should SI intensify, worsen or should they feel unsafe in the future which they agree to do. On the day of discharge she stated her mood was "good" and remained future-oriented including seeing her family, going on a walk, playing a game and engaging in aftercare appointments for therapy and psychiatry. Day of Discharge Assessment Today the patient voices readiness for discharge. They note improvement in mood and anxiety. They deny thoughts of harm to self or others. Thoughts are organized and they are clinically improved from admission. There is no evidence of psychosis. They improved in the hospital with support and medication adjustments. They agree to take medications as prescribed and keep follow-up appointments. At the time of the discharge they are deemed to be stable and appropriate for outpatient level of care. They are not deemed to be at imminent risk of harm to self or others. They are aware of emergency and crisis services. Knows to call 911 or go to nearest emergency care center if in a crisis which cannot be handled as an outpatient. Overall, I spent a total of 45 minutes on this case including meeting with the patient, reviewing the chart, nursing report, multidisciplinary team meeting, orders, and documentation. Transition of Care Transition Of Care Record: was reviewed with the patient Advance Directives Advance Directives Information Provided: Yes Advance Directives: No Mental Health Advance Directive: No Advance Directives on File: No Living Will: No Power of Mold Sheet Cleaner: No Advance Directives Reason:: Declines as Mental Health Visit. Suicide Risk Level Suicide Risk Level Comments: Acute risk is low given improvement in mood and denial of SI, lack of access to lethal means, improvement in sleep, hopefulness and improvement in brain fog/concentration and lessening of headaches. Chronic risk is moderate given few non-modifiable risk factors and also with multiple protective factors including: good social support, sense of responsibility to family and social supports, outpatient care in place, positive coping skills, capacity to establish therapeutic alliance, willingness to engage with treatment and capacity for self-observation. Counseled on ways to reduce acute and chronic risk including engaging with outpatient providers, using safety plan if needed, utilizing supports, taking medication, and using coping skills. Modifiable risk factors of anxiety, SI and depression were addressed during hospitalization t hrough development of new coping skills, family meeting, safety planning, and medication adjustments. Risk Factors Assessment Male: No : Yes Do You Have Access To A Gun?: No (guns are secured in the home (locked, no access to keys)) Health Problems: Yes (headaches) Mental Health Diagnoses: Yes Substance Use Disorders: No Previous Attempt: No Family History of Suicide: No Previous Psychiatric Hospitalization: Yes Hopelessness: No Protective Factors Assessment Bahai Beliefs: Yes : Yes Responsible for Young Children: Yes Employed: Yes (Self employed) Stable Relationships: Yes Supportive Family: Yes Tobacco Cessation at Discharge Tobacco Cessation Medication Prescribed at Discharge: Offered & Prescribed Discharge Data Lab Results 01/19/24 01/19/24 18:30 19:55 WBC 11.14 H RBC 4.63 Hgb 15.0 Hct 43.0 MCV 92.9 MCH 32.4 MCHC 34.9 RDW Std Deviation 43.7 RDW Coeff of Georgina 12.9 Plt Count 327 MPV 10.0 Immature Gran % (Auto) 0.3 Neut % (Auto) 63.6 Lymph % (Auto) 28.4 [place] % (Auto) 6.2 Eos % (Auto) 1.1 Baso % (Auto) 0.4 Neut # (Auto) 7.09 H Lymph # (Auto) 3.16 [place] # (Auto) 0.69 H Eos # (Auto) 0.12 Baso # (Auto) 0.05 Immature Gran # (Auto) 0.03 Sodium 138 Potassium 3.3 L Chloride 104 Carbon Dioxide 26 Anion Gap 8 BUN 5 L Creatinine 0.67 Est Cr Clr Drug Dosing 107.0 Est GFR ( Amer) 123.9 Est GFR (Non-Af Amer) 106.9 BUN/Creatinine Ratio 7.5 L Glucose 142 H Calcium 9.5 Total Bilirubin 0.3 AST 18 ALT 29 Alkaline Phosphatase 53 Total Protein 7.3 Albumin 4.6 Globulin 2.7 Albumin/Globulin Ratio 1.7 TSH 0.816 Urine Color Yellow Urine Appearance Clear Urine pH 6.5 Ur Specific [place] 1.002 Urine Protein Negative Urine Glucose (UA) Negative Urine Ketones Negative Urine Blood Negative Urine Nitrite Negative Urine Bilirubin Negative Urine Urobilinogen Negative Ur Leukocyte Esterase Negative Salicylates < 3.0 L Urine Opiates Screen Neg Ur Methadone, Qual Neg Acetaminophen < 3 L Urine Barbiturates Neg Ur Phencyclidine (PCP) Neg U Amphetamin/Meth Scrn Neg MDMA (Ecstasy) Screen Neg U Benzodiazepines Scrn Neg Ur Cocaine Metabolite Neg U Marijuana (THC) Screen Neg Ethyl Alcohol mg/dL < 10.0 SARS-CoV-2, RNA, NAAT NEGATIVE Hospital Course (1) Major depressive disorder, recurrent episode, severe with anxious distress: (2) Generalized anxiety disorder with panic attacks: (3) Depersonalization: (4) ADHD: (5) Mixed migraine and muscle contraction headache: Plan 01/24/2024: -Feeling ready for discharge 01/23/2024: -Start gabapentin 100mg TID -Increase Ritalin 10mg @ 0700 and 1400 -Continue sertraline and mirtazapine 01/22/2024: -Continue sertraline and mirtazapine (she will attempt to avoid use of additional prn dose as may have contributed to blurry vision) -Will discontinue Concerta and go back to Ritalin 10mg qd 01/21/2024: -Increase sertraline to 50mg HS -Continue with mirtazapine scheduled and prn dose -Concerta 27mg qAM tomorrow once home supply is brought 01/20/2024: The patient was admitted to the [facility] ([facility] unit) on q15 min checks (behavioral with suicide precautions) for safety. The patient will participate in group, recreational, and milieu therapies and will be offered additional individual and family sessions as clinically appropriate. -Start sertraline 25mg HS -Start mirtazapine 7.5mg HS with additional 7.5mg HS prn available for insomnia -Given Concerta is non-formulary will start Ritalin 10mg qAM until she can bring home supply to have pharmacy verify Mental Health & Subst Abuse Tx Psychiatrist Name of Psychiatrist: [facility]- Dr. Davila Psychiatrist's Date Of Appointment With Psychiatric Provider: 03/23/2024 Time of Appointment with Psychiatrist: 2:10pm Psychiatric Appointment Comment: [id number] [facility] [place] [id number] Therapist Name of Therapist: [facility]- Roseann Montoya LCSW Therapist's Date of Therapist Appointment: 01/26/2024 Time of Therapist Appointment: 1pm Therapy Appointment Comment: [id number] [facility] [place] [id number] Vp Director Of Finance Name of Vp Director Of Finance: None Post Discharge Appointments Primary Care Physician Name Of Family Doctor/PCP: Dr. Lakhani [facility] Date of Future Appointment with PCP: 02/05/2024 Time of Appointment with PCP: 11AM Provider Appointment Comment: [id number], [place] [address] Smoking Cessation Counseling Tobacco Cessation Medication Prescribed at Discharge: Offered & Prescribed Contact Information Discharge Discharge Address: [address], [place] [address] Discharge Plan Discharge Items Patient Disposition: Home - Self-Care Reason For Visit: UNSPECIFIED DEPRESSION Discharge Diagnosis: Major Depressive Disorder with anxious distress Activity: Resume your previous activity Non-emergency contact: Primary Care Provider, Psychiatrist and Therapist Call non-emergency contact if: you have any medication questions and your symptoms worsen Follow-up/Referrals: Ethan Owen M.D. [Primary Care Provider] - Diet: Regular Addtl Attending Provider Instructions: Optional mobile apps we discussed: -Suicide safety plan -Virtual Hope Box -Headspace -Youtube for restorative yoga SPECIAL CARE INSTRUCTIONS: 1. Follow through with your scheduled aftercare appointments. If unable to keep an appointment, please call to reschedule. 2. Take your medication only as prescribed. Medication should not be changed or stopped without the approval of your doctor. In the event of worsening symptoms or concerns about side effects, contact your doctor immediately. 3. Utilize new healthy coping skills, anger management skills, and stress management skills learned during your hospitalization. Journal feelings and process them with a support person. Identify stressors or situations that may result in relapse, deterioration or inappropriate behaviors and develop a plan to deal with those issues. 4. If your coping skills are ineffective and you are in crisis, contact your outpatient providers for direction. If unable to reach your providers, please call the [facility] CRISIS LINE AT , go to the [facility] walk-in center at [address] [facility] [address], [place], or go to the closest Emergency Room. 5. Avoid alcohol and un-prescribed drugs. 6. You have been provided with the Mental Health Advance Directives Pamphlet for your review. 7. Your condition is stable for discharge to outpatient level of care, but recovery is an ongoing process. Ifthoughts to harm yourself or others return, follow the safety plan developed during your stay. Planning for a safe return home includes securing weapons. Our treatment team recommends weaponsbe removed from the home until your outpatient provider reassesses your progress. In rare cases where the items themselvescannot be removed, guns and ammunitionshould be secured separatelyand keys stored by a reliable personoutside of the home. If you were admitted on an involuntary commitment, the police or other legal authorities may be involved in this process. AFTERCARE APPOINTMENTS: * Please call your insurance company prior to your scheduled appointment to confirm your aftercare providers are covered. Take your insurance information to your appointments. WHO TO CALL AND WHEN: Medical Emergencies: For questions or emergencies related to your hospital stay, please contact the Inpatient Behavioral Health Unit at [phone]. A director of the biophysics facility is on-call 04/05 for the Behavioral Health Unit for emergencies At any time you feel your situation is an emergency, you may also call 911 immediately. [place] Crisis Hotline: 013 Pending Studies at Discharge: No Stand-Alone Forms: My [facility] [employer], Smoking Cessation Medications and DC Order Prescriptions: New nicotine [Nicoderm CQ] 21 mg/24 hr Patch 24 Hour 21 mg transdermal QAM 30 Days Qty: 28 0RF gabapentin 100 mg Capsule 100 mg PO TID PRN (Reason: migraine/anxiety) 30 Days Qty: 30 0RF methylphenidate HCl 10 mg Tablet 10 mg PO [id number] 30 Days Qty: 60 0RF mirtazapine 15 mg Tablet 7.5 mg PO HS 30 Days Qty: 15 0RF sertraline 50 mg Tablet 50 mg PO HS 30 Days Qty: 30 0RF gabapentin 100 mg capsule 100 mg PO TID PRN (Reason: migraine/anxiety) 30 Days Qty: 90 0RF Continued Women's Multivitamin w-Biotin 200-300 mcg tablet,chewable PO ibuprofen 200 mg Tablet 800 mg PO DIRECTED PRN (Reason: Pain) magnesium oxide 500 mg magnesium Tablet 500 mg PO DAILY Discontinued vit C-rut-hesp cmp-bioflav,cit 598-50-00-200 mg tablet PO gabapentin 100 mg capsule 200 mg PO HS Qty: 60 3RF lorazepam 0.5 mg tablet 0.25 - 0.5 mg PO BID PRN (Reason: Anxiety) Rx Instructions: PER PT "TAKE 1/2 TAB BID, USE OTHER 1/2 TABS IF NEEDED". methylphenidate HCl 27 mg tablet extended release 24hr 27 mg PO QAM amoxicillin-pot clavulanate 875-125 mg tablet 1 tab PO BID Rx Instructions: STARTED 12/26/23 FOR 7 DAYS Discharge Orders: Discharge Order (Routine); Ordered 01/24/24 Ordered By: Priscilla Reed Admission Data Admit Date/Time: 01/19/24 22:40 Attending Provider: Priscilla Reed Admit Provider: Priscilla Reed Primary Care Provider: Ethan Owen Other Interventions: Discharge Summary Assessment (RN) Last Done: 01/24/24 09:26 PSY Interdisciplinary Discharge Planning Last Done: 01/24/24 09:24 Coding Level of Care Code 95121 D/C day mgmt > 30 min Diagnoses Major depressive disorder, recurrent episode, severe with anxious distress F33.2 Generalized anxiety disorder with panic attacks F41.1; F41.0 Depersonalization F48.1 ADHD F90.9 Mixed migraine and muscle contraction headache G43.909; G44.209
[2024-01-24] MEDS: GABAPENTIN 100 MG CAP PO ONE (11:36)
== END 2024-01-24 11:40 | disposition home or self-care (01) | DRG 885 ==
LOC: ED 17:16 → 3S 22:29